=== PATIENT | female | born 1995 | race Caucasian/White ===

== ENCOUNTER 2017-07-24 09:08 | Outpatient (CLI) | payer OTHER | END 2017-07-24 09:19 | disposition home or self-care (01) | LOC: SONOGRAMA 09:08 | DX: M25.551 Pain in right hip (principal) ==

== ENCOUNTER 2017-09-04 11:30 | Outpatient (CLI) | payer OTHER | END 2017-09-05 07:01 | disposition home or self-care (01) | LOC: RAD 11:30 | DX: M25.551 Pain in right hip (principal) ==